=== PATIENT | male | born 1980 | race African-American/Black ===

== ENCOUNTER 2017-05-21 14:38 | Emergency (ER) | payer OTHER ==
[~2017-05-21] VITALS: Ht 170.2 cm; Wt 68.0 kg
--- NOTE | ~2017-05-21 | CR282 ---
[facility] A Service of [facility] RADIOLOGY TEXT RESULTS PATIENT: EM HUNT LOCATION: [facility] : 82 UNIT #: [id number] AGE: [address]: Leonie Webb SEX: M ORDER DR: [id number] [facility] [address] [place], [place] [address] [id number] E MR#: [id number] Acc #: [id number] NAME: EM HUNT : 1980 SEX: M STUDY DATE/TIME: 05/21/2017 15:51 UNIT: [facility] ROOM: STUDY DESCRIPTION: CR Wrist Min 3 View Rt Attending Physician: Leonie Webb P.A.-C. Ordering Physician: Leonie Webb P.A.-C. Primary Care Physician: [facility] MEDICAL IMAGING REPORT This report is preliminary unless electronic signature is present EXAM Right wrist, 3 views, COMPARISON Three views of the right hand on the same date. INDICATION 36-year-old male with right wrist pain and swelling since falling while playing basketball 2 days ago. FINDINGS There is a comminuted fracture of the distal radial metaphysis with intraarticular extension of the fracture. There is foreshortening and dorsal convex angulation of the distal radial fracture. There is a minimally displaced avulsion fracture of the ulnar styloid. There is no dislocation. The carpus is aligned with the distal radial articular surface. IMPRESSION Acute comminuted fracture of the distal radial metaphysis with primarily a transverse component. Only seen on a single view, there is a question of a longitudinal component which may be intraarticular. There is dorsal convex angulation of the fracture with foreshortening. There is also a mildly displaced acute avulsion fracture of the ulnar styloid. No dislocation. Dictated by... Issa Bradford M.D. THIS IS AN ELECTRONICALLY VERIFIED REPORT Issa Bradford M.D. at 05/28/2017 8:09 PM [facility] A Service [facility] RADIOLOGY TEXT RESULTS PATIENT: EM HUNT LOCATION: [facility] : 82 UNIT #: [id number] AGE: [address]: Leonie Webb SEX: M ORDER DR: BEAU/shankar TD: 05/21/2017 19:26 JOB #: [id number] MEDICAL IMAGING REPORT Page 1 of 1 COPY
--- NOTE | ~2017-05-21 | CR142 ---
[facility] A Service of [facility] RADIOLOGY TEXT RESULTS PATIENT: EM HUNT LOCATION: [facility] : 81 UNIT #: [id number] AGE: [address]: Leonie Webb SEX: M ORDER DR: [id number] [facility] [address] [place], [place] [address] [id number] E MR#: [id number] Acc #: [id number] NAME: EM HUNT : 1980 SEX: M STUDY DATE/TIME: 05/21/2017 15:53 UNIT: [facility] ROOM: STUDY DESCRIPTION: CR Hand Min 3 Views Rt Attending Physician: Leonie Webb P.A.-C. Ordering Physician: Ed Doctor [id number] [facility] Primary [facility] MEDICAL IMAGING REPORT This report is preliminary unless electronic signature is present EXAM Right hand, 3 views COMPARISON Three views of the right wrist on the same date. INDICATION A 40-year-old male with right hand pain and swelling. Inability to use the hand for 2 days since falling while playing basketball. FINDINGS Evaluation of the fingers is limited by flexion on all views. There is no evidence of acute fracture or dislocation of the right hand. There is a comminuted dorsal convex mildly foreshortened acute fracture through the distal radius with possible intraarticular component, and there is also a minimally-displaced acute avulsion fracture of the ulnar styloid. IMPRESSION 1. No acute fracture or dislocation of the right hand. 2. Acute fractures of the distal radius and distal ulna, as described in the report of wrist radiographs on the same date. Please refer to that report. Dictated by... Issa Bradford M.D. THIS IS AN ELECTRONICALLY VERIFIED REPORT Issa Bradford M.D. at 05/28/2017 8:10 PM Julián TD: 05/21/2017 19:22 JOB #: [id number] [facility] A Service of [facility] RADIOLOGY TEXT RESULTS PATIENT: EM HUNT LOCATION: [facility] #: [id number] : [birth year] UNIT #: [id number] AGE: [address]: Leonie Webb SEX: M ORDER DR: MEDICAL IMAGING REPORT Page 1 of 1 COPY
--- NOTE | ~2017-05-21 | CR133 ---
[facility] A Service of [facility] RADIOLOGY TEXT RESULTS PATIENT: EM HUNT LOCATION: [place] : 82 UNIT #: [id number] AGE: [address]: Leonie Webb SEX: M ORDER DR: [id number] [facility] [address] [place], [place] [address] [id number] E MR#: [id number] Acc #: [id number] NAME: EM HUNT : 1980 SEX: M STUDY DATE/TIME: 05/21/2017 15:54 UNIT: [place] ROOM: STUDY DESCRIPTION: CR Forearm 2 View Rt Attending Physician: Leonie Webb P.A.-C. Ordering Physician: Jarret Leyva M.D. Primary Care Physician: [facility] MEDICAL IMAGING REPORT This report is preliminary unless electronic signature is present EXAM Right forearm 05/21/2017 INDICATIONS Pain, cannot move or use the hand. Fell playing basketball 2 days ago. TECHNIQUE 2 views of the right forearm were performed COMPARISON No comparisons FINDINGS There is a complete comminuted fracture of the distal radius. On the lateral projection there is mild apex dorsal of the largest fracture fragment. One fracture line approaches but does not clearly breech the radiocarpal joint. There is an ulnar styloid avulsion fracture as well, minimally-displaced. Soft tissue swelling. IMPRESSION Fractures of the distal radius and ulna as described. Mild angulation of the radial fracture on the lateral projection. No definite interarticular extension. Dictated by... Siva Haque M.D. THIS IS AN ELECTRONICALLY VERIFIED REPORT Siva Haque M.D. at 05/21/2017 11:15 PM SARWAT/elissa TD: 05/21/2017 18:50 JOB #: [id number] [facility] A Service of [facility] RADIOLOGY TEXT RESULTS PATIENT: EM HUNT LOCATION: [place] : 82 UNIT #: [id number] AGE: [address]: Leonie Webb SEX: M ORDER DR: MEDICAL IMAGING REPORT Page 1 of 1 COPY
[2017-05-26] MEDS ORDERED: LORTAB 7.5-3251 EACH PO (13:22)
[2017-05-26] MEDS ORDERED: IBUPROFEN800 MG PO (13:23)
== END 2017-05-21 18:00 | disposition home or self-care (01) ==
LOC: CED 14:38
DX: S52.501A Unspecified fracture of the lower end of right radius, initial encounter for closed fracture (principal); S52.611A Displaced fracture of right ulna styloid process, initial encounter for closed fracture; F17.210 Nicotine dependence, cigarettes, uncomplicated; Z88.8 Allergy status to other drugs, medicaments and biological substances; W01.10XA Fall on same level from slipping, tripping and stumbling with subsequent striking against unspecified object, initial encounter; Y92.89 Other specified places as the place of occurrence of the external cause
CPT/HCPCS: 29125; 73090; 73110; 73130; 99283

== ENCOUNTER → 2017-05-26 | Day surgery (SDC) | payer OTHER ==
[~2017-05-26] MED LIST: IBUPROFEN800 MG PO; LORTAB 7.5-3251 EACH PO
--- NOTE | ~2017-05-26 | OR ---
Unit #: [id number] #: [id number] Patient: MARQUITA HUNT [id number] [address] [address] [id number] O MR#: [id number] NAME: MARQUITA HUNT ROOM: Date of Procedure: 05/26/2017 Admission Date: 05/26/2017 Surgeon: Georgi Thomas M.D. : 1980 Attending Physician: Georgi Thomas M.D. Primary Care Physician: [facility] OPERATIVE REPORT PREOPERATIVE DIAGNOSIS Right comminuted distal radius fracture. POSTOPERATIVE DIAGNOSIS Right comminuted distal radius fracture. PROCEDURE PERFORMED Open reduction and internal fixation of right distal radius fracture. HISTOPATHOLOGY TECHNICIAN Saulo Martinez RN. ANESTHESIA General with LMA. COMPLICATIONS None. SPECIMENS None. DRAINS None. SURGICAL IMPLANTS [employer] distal radius locking plate. INDICATION FOR PROCEDURE Marquita is a 36-year-old male, who had fallen on an outstretched right wrist resulting in a comminuted distal radius fracture. The patient was seen in the emergency room, where he was noted to have a wrist fracture. He was seen in my office. It was felt that he would benefit from ORIF due to the significant comminution and displacement. Risks, benefits, and alternatives of the surgery were discussed with the patient. Informed consent was obtained. Risks include, but not limited to, infection, bleeding, nerve injury, blood clots, risks associated with anesthesia, need for further surgery, and possibly . DESCRIPTION OF PROCEDURE On 05/26/2017, the patient was seen in preoperative holding area, where surgical site was marked. Preoperative antibiotics were received. H and P and consent updated. Preoperative block performed. He was taken to the Unit #: [id number] #: [id number] Patient: MARQUITA HUNT operating room and provided general anesthesia. Right upper extremity was prepped and draped in typical sterile fashion. Time-out performed confirming the correct surgical site and procedure. An Esmarch was used to exsanguinate the arm and tourniquet inflated 250 mmHg. Standard volar approach performed to the distal radius. Incision was taken down through the skin and subcutaneous tissues. FCR tendon mobilized in an ulnar direction. Underlying fascia carefully split. Pronator quadratus elevated off the fracture site. There was severe comminution noted of the distal radius with shortening and volar translation. The fracture site was debrided. It was then mobilized. The plate was locked distally using pegs. This was done to use the plate to help reduce the fracture. The fracture was joysticked and locked down proximally with bicortical screws. There was still some degree of shortening, but essentially a neutral variance. Also, he does have some increased translation of the DRUJ. Once this was complete, final images were taken confirming appropriate reduction of fracture and placement of hardware. There was no intraarticular component of the fracture. Tourniquet released at 53 minutes. Wound thoroughly irrigated. Hemostasis achieved. Subcutaneous tissue closed with 3-0 Vicryl suture followed by a 4-0 Monocryl suture for the skin. Steri-Strips, 4x4s, cast padding, well-padded volar splint were placed. The patient was subsequently awakened from general anesthesia in stable condition and taken to the PACU postoperatively. POSTOPERATIVE PLAN The patient will be discharged home. He will be nonweightbearing on the right upper extremity. He will keep the splint clean and dry. He will follow up in 1 week. He will work on digit motion. No complications were encountered during the surgical procedure. Dictated by... Georgi Thomas M.D. MARY/arcelia TD: 05/27/2017 13:16 JOB #: [id number] OPERATIVE REPORT Page 1 of 1 X X PROCEDURE OPERATIVE NOTE
--- NOTE | ~2017-05-26 | CR282 ---
[facility] A Service of [facility] RADIOLOGY TEXT RESULTS PATIENT: EM HUNT LOCATION: [facility] : 82 UNIT #: [id number] AGE: [address]: Georgi Thomas MD SEX: M ORDER DR: [id number] [facility] [address] [place], [place] [address] [id number] O MR#: [id number] Acc #: [id number] NAME: EM HUNT : 1980 SEX: M STUDY DATE/TIME: 05/26/2017 16:53 UNIT: [facility] ROOM: STUDY DESCRIPTION: CR Wrist Min 3 View Rt Attending Physician: Georgi Thomas M.D. Ordering Physician: Georgi Thomas M.D. Primary Care Physician: [facility] MEDICAL IMAGING REPORT This report is preliminary unless electronic signature is present EXAM Right wrist 05/26/2017 HISTORY 36-year-old male with right wrist pain status post ORIF in operating room today. COMPARISON Right wrist 05/21/2017. FINDINGS 3 intraoperative fluoroscopic spot images demonstrate postsurgical changes from ORIF of the distal radius. Images were interpreted intraoperatively by the attending surgeon. Total fluoroscopic time 22 seconds. Dictated by... Derrick Crabtree M.D. THIS IS AN ELECTRONICALLY VERIFIED REPORT Derrick Crabtree M.D. at 05/29/2017 2:07 PM ROWENA/hortencia TD: 05/27/2017 09:40 JOB #: [id number] MEDICAL IMAGING REPORT Page 1 of 1 COPY
== END | disposition home or self-care (01) ==
LOC: CSUR 13:04
DX: S52.501A Unspecified fracture of the lower end of right radius, initial encounter for closed fracture (principal); F17.210 Nicotine dependence, cigarettes, uncomplicated; Z88.8 Allergy status to other drugs, medicaments and biological substances; W19.XXXA Unspecified fall, initial encounter; Y93.67 Activity, basketball; Z79.899 Other long term (current) drug therapy
CPT/HCPCS: 73110; 76001; C1713; J0690; J1170; J2250; J2405; J3010